=== PATIENT | female | born 1950 | race Caucasian/White ===

== ENCOUNTER 2019-04-06 15:34 | Emergency (ER) | payer MEDICARE, MEDICAID ==
[~2019-04-06] VITALS: Ht 162.6 cm; Wt 78.5 kg
--- NOTE | 2019-04-06 16:15 | NUR ---
RLE PAIN PAIN, SENT [facility] TO R/O DVT. PT IS GERMAN SPEAKING, DAUGHTER AT BEDSIDE FOR TRANSLATION. NO OTHER COMPLAINTS AT THIS TIME, NO ACUTE DISTRESS NOTED. MADE COMFORTABLE AND READY FOR EVAL.
[2019-04-06] MEDS ORDERED: KETOROLAC TROMETHAMINE INJ 60 MG/2 ML VIAL IM ONE (17:00)
[2019-04-06] MEDS ORDERED: KETOROLAC TROMETHAMINE INJ 30 MG/ML VIAL ONE (17:08)
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
--- NOTE | 2019-04-06 18:15 | NUR ---
Patient discharged to home in stable condition. Written and verbal after care instructions given. Patient verbalizes understanding of instruction.
[2019-04-06 18:26] VITALS: BP 152/77
== END 2019-04-06 18:15 | disposition home or self-care (01) ==
LOC: ER 15:34
DX: M17.11 Unilateral primary osteoarthritis, right knee (principal); K21.9 Gastro-esophageal reflux disease without esophagitis; E11.9 Type 2 diabetes mellitus without complications; Z98.890 Other specified postprocedural states
CPT/HCPCS: 73560; 93971; 96372; 99284; J1885